=== PATIENT | male | born 1990 | race Two or more races ===

== ENCOUNTER 2017-05-06 09:29 | Emergency (ER) | payer OTHER ==
[~2017-05-06] VITALS: Ht 172.7 cm; Wt 74.4 kg
== END 2017-05-06 12:57 | disposition home or self-care (01) ==
LOC: ER 09:29
DX: R59.0 Localized enlarged lymph nodes (principal)

== ENCOUNTER 2021-10-17 15:56 | Emergency (ER) | payer OTHER ==
[~2021-10-17] VITALS: Ht 188 cm; Wt 86.2 kg
[2021-10-17] MEDS ORDERED: CLEOCIN HCL300 MG PO (18:15)
[2021-10-17] MEDS ORDERED: SELSUN BLUE325 ML TOP (18:15)
== END 2021-10-17 18:18 | disposition home or self-care (01) ==
LOC: ER 15:56
DX: B35.0 Tinea barbae and tinea capitis (principal)